=== PATIENT | female | born 1960 | race Caucasian/White ===

== ENCOUNTER → 2019-01-09 10:05 | Outpatient (CLI) | payer BC ==
[2014-10-01 10:10] VITALS: BMI 32.7
[~2019-01-09 10:05] MED LIST: ADIPEX-P37.5 MG PO; BACTRIM 400-801 TAB; BENICAR HCT 20-1 TA1 PO; ESTRACE 0.5 MG0.5 MG PO; LEVSIN/ANASP0.125 MG PO; LOW DOSE ASPIRI81 M1 PO; PROBIOTIC PO; TOPAMAX25 MG PO; VITAMIN B-122500 MCG PO
--- NOTE | 2019-01-16 09:58 | EC ---
PATIENT:FELTON DELGADO DATE OF SERVICE: 01/09/19 SEX: F MEDICAL RECORD: [id number] DATE OF : 60 LOCATION:D[facility] AGE OF PATIENT: 58 ADMISSION DATE: 01/09/19 REFERRING PHYSICIAN: INTERPRETING PHYSICIAN: MEGHANA DOUGHERTY MD ECHOCARDIOGRAM REPORT ECHO CHARGES 4 ECHO COMPLETE Date: 01/09/19 CLINICAL DIAGNOSIS: LVH H/O HTN ECHOCARDIOGRAPHIC MEASUREMENTS (adult normal given) AC root (d.<3.7cm) 3.0 cm LV Septum d (<1.2 cm> 1.0 cm Valve Excursion 2.0 cm LV Septum (systole) 1.8 cm Left Atria (s.<4.0cm> 3.5 cm LVPW d(<1.2cm) 1.3 cm RV (d.<2.3cm) 2.9 cm LVPW (sytole) 1.8 cm LV diastole(<5.6CM) 5.1 cm MV E-F(>70mm/sec) cm LV systole 2.9 cm LVOT Diameter 2.1 cm MV exc.(>10mm) cm Est.ejection fraction (50-75%) % DOPPLER: LVIT cm/sec A 61.0 cm/sec E 80.0 cm/sec LA cm/sec RVSP 22.3 mmHg LVOT 104 cm/sec AOP1/2T m/s Asc. Ao 138 cm/sec RVOT 65.0 cm/sec RA cm/sec PA 89.0 cm/sec AV Gradient Peak 7.6 mmHg AV Mean 3.9 mmHg AV Area 2.6 cm MV Gradient Peak 4.0 mmHg MV Mean 1.5 mmHg MV Area cm COMMENTS: OP - HC [employer] Driver: Tahir WALSHOE Post Doc Fellowship: 3 Dr. Garcia TAPE# PACS Pericardial Effusion N DATE OF SERVICE: 01/09/2019 Adequate 2D echo, color flow, spectral Doppler, and M-mode. No LVH. LV internal dimension is normal. Wall motion is normal. EF is greater than or equal to 55%. Aortic valve is tricuspid and no evidence of stenosis on Doppler interrogation. Left atrium normal. Mitral valve shows no prolapse. Trace MR. Right-sided chambers are grossly normal. Trace TR. TRANSINT:[id number] Voice Confirmation ID: [id number] DOCUMENT ID: [id number] ECHOCARDIOGRAM REPORT [id number] FELTON DELGADO GREGORY A MD at 0958 CC: [id number] DICTATION DATE: 01/10/19 1500 UNDERLAY STITCHER: 01/10/19 1839 DEP CLI 01/09/19 [place] [id number] [place] [id number]
== END | disposition home or self-care (01) ==
LOC: D.HCCECHO 10:05
PROVIDERS: ATTEND Internal Medicine Interventional Cardiology
DX: I10 Essential (primary) hypertension (principal)